=== PATIENT | male | born 1975 | race Caucasian/White ===

== ENCOUNTER 2020-08-21 12:45 | Emergency (ER) | payer SELFPAY ==
[2020-08-21 12:55] VITALS: BP 107/74
--- NOTE | 2020-08-21 13:37 | ER Document Report ---
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 Bleeding is controlled. Last tetanus was 6 months ago. Pain is 2 out of 5, slightly dull ache. No [id number] medications have been tried. Denies any other area of injury. Denies any numbness or tingling to his bilateral upper extremities. Denies any fevers chills, nausea, vomiting, diarrhea, fevers or chills Past Medical History - General Information source: Patient - Social History Smoking Status: Current Every Day Smoker Family History: Reviewed & Not Pertinent Past Surgical History: Reports: Hx Cholecystectomy Vertical Provider Document - CONSTITUTIONAL Agree With Documented VS: Yes Exam Limitations: No Limitations General Appearance: WD/WN Notes: MEDICATIONS: I agree with the patient medications as charted by the RN. ALLERGIES: I agree with the allergies as charted by the RN. PAST MEDICAL HISTORY/PAST SURGICAL HISTORY: Reviewed and agree as charted by RN. SOCIAL HISTORY: Reviewed and agree as charted by RN. FAMILY HISTORY: No significant familial comorbid conditions directly related to patient complaint EXAM: Reviewed vital signs as charted by RN. PHYSICAL EXAMINATION:reviewed vital signs by RN GENERAL: Well-appearing, well-nourished and in no acute distress. HEAD: Atraumatic, normocephalic. EYES: Pupils equal round and reactive to light, extraocular movements intact, sclera anicteric, conjunctiva are normal. ENT: Nares patent, oropharynx clear without exudates. Moist mucous membranes. NECK: Normal range of motion, supple without lymphadenopathy LUNGS: Breath sounds clear to auscultation bilaterally and equal. No wheezes rales or rhonchi. HEART: Regular rate and rhythm without murmurs ABDOMEN: Soft, nontender, nondistended abdomen. No guarding, no rebound. No masses appreciated. Musculoskeletal: Normal range of motion, no pitting or edema. No cyanosis. NEUROLOGICAL: Cranial nerves grossly intact. Normal speech, normal gait. Normal sensory, motor exams PSYCH: Normal mood, normal affect. SKIN: Warm, Dry, normal turgor, no rashes or lesions noted. 2 cm linear superficial, horizontal laceration to right dorsal wrist. Radial pulses +2 bilaterally equally. Cap refill less than 3 seconds. Records Manager +2 bilaterally and equal. Full motor and sensory function to BUE equally. Course - Re-evaluation Re-evalutation: 08/21/20 13:39 Afebrile, vital stable no distress. Nurses notes reviewed. Please see procedure note for laceration repair. Discussed with patient take prophylactic antibiotics due to the fact that he does work with his hands and outside. Patient given a work note to be out of work for the next 2 days. Advised to not get glue wet for the first 24 hours, Coban has been applied for fusion so he does not Hyperflex his wrist. Patient did receive a tetanus injection within the last 6 months. No need to update today. Discussed with patient that he can take [id number] Tylenol and ibuprofen for pain control. Verbalized an understanding of this plan of care. After performing a Medical Screening Examination, I estimate there is LOW risk for OPEN FRACTURE, COMPARTMENT SYNDROME, TENDON RUPTURE, ACUTE NEUROVASCULAR INJURY, or RETAINED FOREIGN BODY, thus I consider the discharge disposition reasonable. Also, there is no evidence or peritonitis, sepsis, or toxicity. I have reevaluated this patient multiple times and no significant life threatening changes are noted. The patient and I have discussed the diagnosis and risks, and we agree with discharging home with close follow-up with the understanding that symptoms and presentations can change. We also discussed returning to the Emergency Department immediately if new or worsening symptoms occur. We have discussed the symptoms which are most concerning (e.g., changing or worsening pain, fever, numbness, weakness, cool or painful digits) that necessitate immediate return. - Vital Signs Vital signs: Temp Pulse Resp BP Pulse Ox 97.8 F 94 15 107/74 98 08/21/20 12:54 08/21/20 12:54 08/21/20 12:54 08/21/20 12:54 08/21/20 12:54 - Laboratory Results Critical Laboratory Results Reviewed: No Critical Results - Radiology Results Critical Radiology Results Reviewed: No Critical Results Procedures - Laceration/Wound Repair Right Wrist Time completed: 13:29 Wound length (cm): 2 - cm Wound's Depth, Shape: Superficial, Linear Laceration pre-procedure: Shur-Clens applied Wound explored: No foreign body removed Wound Repaired With: Dermabond Post-procedure wound care: Sterile dressing applied Post-procedure NV exam normal: No Complications: No Notes: 08/21/20 13:30 Verbal consent given for laceration repair. Site cleaned with 300 mL of high- pressure normal saline. No foreign body seen on exploration of superficial wound. Dermabond placed to well approximate wound edges. Steri-Strips applied. Patient tolerated procedure without incident. Discharge - Discharge Clinical Impression: Laceration of right wrist Condition: Stable Disposition: HOME, SELF-CARE Instructions: Laceration Care ([facility]), Prophylactic Antibiotic ([facility]) Additional Instructions: The wound has been closed with glue. Please do not pick at the at the wound. Do not cover it with any kind of antibiotic ointment as this can cause the glue to loosen. Return immediately if you develop spreading redness around the wound, pus from the wound, worsening pain, or a fever of >100.4. Keep the area clean and dry. Do not get wet with water for the first 24 hours. You did not require tetanus shot today since your is is up-to-date. Take antibiotics as directed with food twice a day for 5 days Return immediately for any new or worsening symptoms. Follow up with primary care provider, call tomorrow to make followup appointment. Prescriptions: Cephalexin [Cephalexin 500 MG Tablet] 500 mg PO BID #10 tablet Forms: Return to Work Referrals: YNUG CONNOR MD [COMMUNITY BASED STAFF] - Follow up as needed
== END 2020-08-21 13:42 | disposition home or self-care (01) ==
LOC: ER 12:45
DX: S61.511A Laceration without foreign body of right wrist, initial encounter (principal); W25.XXXA Contact with sharp glass, initial encounter; Y99.0 Civilian activity done for income or pay; F17.200 Nicotine dependence, unspecified, uncomplicated; Z90.49 Acquired absence of other specified parts of digestive tract
CPT/HCPCS: 99283